=== PATIENT | male | born 1995 | race Two or more races ===

== ENCOUNTER 2020-04-26 18:05 | Emergency (ER) | payer BC, MEDICAID ==
[~2020-04-26] VITALS: Ht 175.3 cm; Wt 86.2 kg
[2020-04-26] MEDS ORDERED: FLUORESCEIN SOD 1 MG TEST STRIP LEFTEYE ONE (20:45)
[2020-04-26] MEDS ORDERED: TETRACAINE HCL 0.5% OPTH(EYE) SOLN 4ML LEFTEYE ONE (20:45)
[2020-04-26 21:09] VITALS: BP 134/87
== END 2020-04-26 22:36 | disposition home or self-care (01) ==
LOC: ER 18:05
DX: S05.02XA Injury of conjunctiva and corneal abrasion without foreign body, left eye, initial encounter (principal); X58.XXXA Exposure to other specified factors, initial encounter; Y93.89 Activity, other specified; Y92.89 Other specified places as the place of occurrence of the external cause; Y99.8 Other external cause status